=== PATIENT | female | born 1995 | race Hispanic/Latino ===

== ENCOUNTER 2018-09-25 13:37 | Emergency (ER) | payer OTHER ==
[~2018-09-25] VITALS: Ht 167.6 cm; Wt 55.6 kg
[2018-09-25] MEDS ORDERED: LOPE1CAP5 PO (13:45)
[2018-09-25] MEDS ORDERED: ZOFR4TAB16 PO (13:45)
[2018-09-25] MEDS ORDERED: DICYCLOMINE 10 MG CAP PO ONE (14:45)
[2018-09-25 14:58] LABS: HEMATOCRIT 38.2 % (36.0-47.0); HEMOGLOBIN 12.6 g/dl (12.0-15.5); MEAN CORPUSCULAR HEMOGLOBIN 30.1 pg (27.0-33.0); MEAN CORPUSCULAR VOLUME 91.2 fl (80.0-96.0); PLATELET COUNT, AUTOMATED 182 10^3/uL (150-450); RED BLOOD COUNT 4.19 10^6/uL (4.00-5.40); WHITE BLOOD COUNT 3.4 10^3/uL (4.0-10.0)
[2018-09-25 15:24] LABS: BLOOD UREA NITROGEN 8 MG/DL (7-18); CALCIUM LEVEL 8.3 MG/DL (8.5-10.1); CARBON DIOXIDE LEVEL 27 MEQ/L (21-32); CHLORIDE LEVEL 108 MEQ/L (98-107); CREATININE FOR GFR 0.72 MG/DL (0.55-1.30); GLUCOSE, FASTING 86 MG/DL (70-100); MAGNESIUM LEVEL 1.8 MG/DL (1.8-2.4); POTASSIUM SERUM 3.6 MEQ/L (3.5-5.1); SODIUM LEVEL 140 MEQ/L (136-145)
[2018-09-25 15:33] LABS: ATYPICAL LYMPH 8 % (0-5); BASOPHILS 1 % (0-4); EOSINOPHILS 2 % (0-5); LYMPHOCYTES 41 % (16-52); MONOCYTES 10 % (0-8); NEUTROPHILS 36 % (35-75)
[2018-09-25 15:34] LABS: PLATELET ESTIMATE NORMAL (NORMAL)
[2018-09-25 16:37] VITALS: BP 98/64
== END 2018-09-25 17:02 | disposition home or self-care (01) ==
LOC: M ED 13:37
DX: K52.9 Noninfective gastroenteritis and colitis, unspecified (principal); Z79.899 Other long term (current) drug therapy

== ENCOUNTER → 2019-06-18 | Outpatient (CLI) | payer OTHER ==
[~2019-06-18] MED LIST: LOPE1CAP5 PO; ZOFR4TAB16 PO
== END ==
LOC: M LAB 18:57
PROVIDERS: ATTEND Physician Assistant Medical
DX: Z32.01 Encounter for pregnancy test, result positive (principal)